=== PATIENT | female | born 1955 | race Two or more races ===

== ENCOUNTER 2021-10-06 17:01 | Emergency (ER) | payer OTHER ==
[~2021-10-06] VITALS: Ht 162.6 cm; Wt 108.9 kg
[2021-10-06 17:06] VITALS: BP 172/92
--- NOTE | 2021-10-06 17:24 | NUR ---
PT W/C ASSISTED TO ER BED 5
--- NOTE | 2021-10-06 17:30 | NUR ---
US AT BEDSIDE
--- NOTE | 2021-10-06 18:48 | NUR ---
DR SERRATO AT BEDSIDE EVALUATING PT
[2021-10-06] MEDS ORDERED: KETOROLAC 60 MG/2 ML VIAL IM ONE (18:50)
[2021-10-06] MEDS ORDERED: ACET-8386 PO (19:08)
[2021-10-06] MEDS ORDERED: IBUP-2213 PO (19:08)
--- NOTE | 2021-10-06 19:19 | NUR ---
REPORT GIVEN TO KELBY BUSTILLO . TRANSFER OF CARE
[2021-10-06 19:43] VITALS: BP 172/92
--- NOTE | 2021-10-06 19:44 | NUR ---
Patient discharged with v/s stable. Written and verbal after care instructions given and explained. Patient alert, oriented and verbalized understanding of instructions. Wheel Chair Assisted with by son. All questions addressed prior to discharge. ID band removed. Patient advised to follow up with PMD. Rx of [place] 5/325 & Ibuprofen given. Patient educated on indication of medication including possible reaction and side effects. Opportunity to ask questions provided and answered.
== END 2021-10-06 19:42 | disposition home or self-care (01) ==
LOC: MED 17:01
DX: M79.652 Pain in left thigh (principal); R22.42 Localized swelling, mass and lump, left lower limb; E11.9 Type 2 diabetes mellitus without complications; I10 Essential (primary) hypertension
CPT/HCPCS: 93971; 96372; 99284; J1885; Q0092